=== PATIENT | male | born 1960 | race Caucasian/White ===

== ENCOUNTER 2019-10-04 08:14 | Emergency (ER) | payer OTHER ==
--- NOTE | 2019-10-04 08:24 | EDM.PDOC ---
ED HPI GENERAL MEDICAL PROBLEM - General Chief Complaint: Gastrointestinal Problem Stated Complaint: INTESTINES PIERCING SCROTUM Time Seen by Provider: 10/04/19 08:23 Source of Information: Reports: Patient, RN, RN Notes Reviewed History Limitations: Reports: No Limitations - History of Present Illness INITIAL COMMENTS - FREE TEXT/NARRATIVE: Pt presents with c/o a right inguinal hernia that slides out frequently with standing and coughing. Pt states it has been noticeable for several months, and has became more painful recently. He denies abdominal pain or distention. He admits to some occasional difficulty passing his urine and with BM's, but is unsure if it is related to the hernia or note. Duration: Chronic, Constant Location: Reports: Other (Groin/Scrotum) Quality: Reports: Ache Severity: Moderate Improves with: Reports: None Worsens with: Reports: Other (Cough, position/standing) Scrotum Pain Score (Numeric/FACES): 7 - Related Data Allergies Allergy/AdvReac Type Severity Reaction Status Date / Time No Known Allergies Allergy Verified 10/04/19 08:25 Home Meds: Home Meds . [No Known Home Meds] 10/04/19 [History] Past Medical History Genitourinary History: Reports: Prostate Disorder Oncologic (Cancer) History: Reports: Prostate Social & Family History - Family History Family Medical History: Noncontributory - Tobacco Use Smoking Status *Q: Current Every Day Smoker Tobacco Use Within Last Twelve Months: Cigarettes Years of Tobacco use: 40 Packs/Tins Daily: 0.5 - Living Situation & Occupation Living situation: Reports: Single, Alone ED ROS GENERAL - Review of Systems Review Of Systems: ROS reveals no pertinent complaints other than HPI. ED EXAM, RENAL/ - Physical Exam Exam: See Below Exam Limited By: No Limitations General Appearance: Alert, WD/WN, No Apparent Distress Nose: Normal Inspection Throat/Mouth: Normal Inspection, Normal Voice, No Airway Compromise Head: Atraumatic, Normocephalic Neck: Normal Inspection Respiratory/Chest: No Respiratory Distress Cardiovascular: Regular Rate, Rhythm GI/Abdominal: Normal Bowel Sounds, Soft, Non-Tender, No Organomegaly, No Distention, No Abnormal Bruit, No Mass. No: Guarding, Rigid, Rebound (Male) Exam: Circumcised, Hernia (Large right inguinal hernia, easily reduced.) Rectal (Males) Exam: Deferred Extremities: Normal Inspection Neurological: Alert, Oriented, Normal Gait, No Motor/Sensory Deficits Psychiatric: Normal Mood Skin Exam: Warm, Dry, Intact Course - Vital Signs Last Recorded V/S: Last Vital Signs Temp 98.2 F 10/04/19 08:20 Pulse 88 10/04/19 08:20 Resp 18 10/04/19 08:20 BP 169/101 H 10/04/19 08:20 Pulse Ox 97 10/04/19 08:20 Departure - Departure Time of Disposition: 08:29 Disposition: Home, Self-Care 01 Condition: Good Clinical Impression: Reducible right inguinal hernia - Discharge Information *PRESCRIPTION DRUG MONITORING PROGRAM REVIEWED*: No *COPY OF PRESCRIPTION DRUG MONITORING REPORT IN PATIENT ADELINE: No Instructions: Inguinal Hernia, Adult, [id number] Forms: ED Department Discharge Additional Instructions: Wear an athletic support (jock strap). You have an appointment to see Dr. Tanner on 10/11/19 at 9:00AM [facility]. Check in at the hospital front desk receptionist between 8:30 and 8:45AM Friday morning.
== END 2019-10-04 08:49 | disposition home or self-care (01) ==
LOC: DL.ED 08:14
DX: K40.90 Unilateral inguinal hernia, without obstruction or gangrene, not specified as recurrent (principal); F17.210 Nicotine dependence, cigarettes, uncomplicated
CPT/HCPCS: 99283

== ENCOUNTER 2019-10-12 07:17 | Day surgery (SDC) | payer OTHER ==
--- NOTE | 2019-10-11 11:26 | CR ---
EXAMINATION: Chest 2V SEX: Male AGE: 59 years CLINICAL HISTORY: 59-year-old male PREOP - CURRENT SMOKER. No comparisons immediately available. INTERPRETATION: (PA/lateral CXR) 1. Subtle peribronchial "cuffing" characteristic of reactive airway disease, i.e., "smoker". 2. Hypertrophic marginal spondylosis dorsal spine. No pathologic skeletal lesion, fracture or dislocation. 3. Normal cardiac silhouette. No pulmonary vascular congestion, alveolar edema or dependent pleural effusion. 4. No lung mass, hilar lymphadenopathy or focal lobar pneumonia. 5. No atelectasis/collapse. 6. No pneumothorax, pneumomediastinum or free subdiaphragmatic air. CONCLUSION: Mild bronchitis. No sign of heart failure, lung mass or lobar pneumonia.
[2019-10-12] MEDS ORDERED: Esmolol 100 MG/10 ML SDV IV ONE (07:18)
[2019-10-12] MEDS ORDERED: Ketorolac 30 MG/ML SDV IVPUSH ONE (07:18)
[2019-10-12] MEDS ORDERED: Midazolam 1 MG/ML 2 ML SDV IV ONE (07:18)
[2019-10-12] MEDS ORDERED: Propofol 200 MG/20 ML SDV IV ONE (07:18)
[2019-10-12] MEDS ORDERED: Dexamethasone 4 MG/ML SDV IV ONE (07:18)
[2019-10-12] MEDS ORDERED: Lidocaine 2% 20 ML MDV ONE (07:18)
[2019-10-12] MEDS ORDERED: fentaNYL 100 MCG/2 ML SDV IV ONE (07:18)
[2019-10-12] MEDS ORDERED: Ondansetron 4 MG/2 ML SDV IV ONE (07:18)
[2019-10-12] MEDS ORDERED: ceFAZolin 2 GM in Premix Bag 1 BAG IV ONE (07:30)
[2019-10-12] MEDS: Lactated Ringers 1,000 ML IV SCH ×2 (07:44→10:42)
[2019-10-12] MEDS ORDERED: Bupivacaine 0.25% 10 ML SDV ONE (08:12)
[2019-10-12] MEDS ORDERED: Bupivacaine 0.25% 10 ML SDV INJECT ONE (09:20)
[2019-10-12] MEDS ORDERED: Acetaminophen/oxyCODONE 325-5 MG Tab PO PRN (09:58)
[2019-10-12] MEDS: Morphine 2 MG/ML Syringe IVPUSH PRN ×3 (10:37→16:38)
--- NOTE | 2019-10-12 11:49 | OR ---
DATE: 10/12/2019 PREOPERATIVE DIAGNOSIS: Large scrotal right inguinal hernia. POSTOPERATIVE DIAGNOSIS: Large scrotal right inguinal hernia. PROCEDURE: Open repair of right scrotal inguinal hernia. ANESTHESIA: General. ESTIMATED BLOOD LOSS: Minimal. SPECIMEN: Hernia sac. OPERATIVE FINDINGS: A large indirect inguinal hernia extending down into the scrotum. PROCEDURE IN DETAIL: After adequate preparation, a transverse groin incision was made over the bulge area and carried down to the external abdominal oblique. This was then incised in the direction of the fibers and the external oblique opened up through the external ring. The hernia sac was then mobilized from the inguinal canal and dissected free from the cord structures. This was a large sac and contained visible small bowel through the sac wall. The sac was then dissected all the way down to the deep inguinal ring. At that point, it was opened to assure there was no sliding component to the hernia and the intestine was fully reduced back into the abdomen. The hernia sac was ligated at the deep inguinal ring with a 0 Prolene suture fixation. The inguinal floor was then reinforced with a pre-cut Prolene mesh. This was sewn to the inguinal ligament on the inferior border with a running 0 Prolene suture and an interrupted Prolene suture for the superior flap. A keyhole had been made previously around the cord structures and this was just large enough to admit the inguinal cord structures. 0.25% Marcaine was then infused in the surrounding tissue. The wound was closed with Vicryl and 4-0 Monocryl for the skin. [facility] /[id number]
[2019-10-12] MEDS ORDERED: Sodium Chloride 0.9% 10 ML Syringe FLUSH PRN (12:13)
== END 2019-10-12 17:00 | disposition home or self-care (01) ==
LOC: DL.SDS 07:17 → DL.MS 09:57 → DL.SDS 17:00
PROVIDERS: ATTEND Surgery
DX: K40.90 Unilateral inguinal hernia, without obstruction or gangrene, not specified as recurrent (principal); F17.210 Nicotine dependence, cigarettes, uncomplicated
CPT/HCPCS: 49505; 71046; 93005; A9270; J0690; J1100; J1885; J2001; J2250; J2270; J2405; J2704; J3010; J3490; J7120

== ENCOUNTER 2020-10-14 10:24 | Emergency (ER) | payer OTHER ==
[2020-10-14] MEDS ORDERED: Lidocaine 1% 30 ML SDV INJECT ONE (10:32)
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
== END 2020-10-14 11:04 | disposition home or self-care (01) ==
LOC: DL.ED 10:24
DX: S61.012A Laceration without foreign body of left thumb without damage to nail, initial encounter (principal); I10 Essential (primary) hypertension; E66.9 Obesity, unspecified; Z68.29 Body mass index [BMI] 29.0-29.9, adult; W31.2XXA Contact with powered woodworking and forming machines, initial encounter
CPT/HCPCS: 12002; 99282; J2001